=== PATIENT | male | born 1965 | race Two or more races ===

== ENCOUNTER 2024-07-13 19:20 | Emergency (ER) | payer BC, OTHER ==
[~2024-07-13] VITALS: Ht 195.6 cm; Wt 108.9 kg
[2024-07-13] MEDS ORDERED: CALCIUM CHLORIDE 1,000 MG/10 ML DISP.SYRIN IV ONE (19:23)
[2024-07-13] MEDS ORDERED: ATROPINE SULFATE 1 MG/10 ML DISP.SYRIN IV ONE (19:23)
[2024-07-13] MEDS ORDERED: EPINEPHRINE (1:10,000) SYRINGE 1 MG/10 ML DISP.SYRIN IVP ONE (19:23)
[2024-07-13 19:27] VITALS: TEMP 98.1
[2024-07-13] MEDS ORDERED: NOREPINEPHRINE 8MG/250ML RTU 250 ML IV ONE (19:41)
[2024-07-13] MEDS ORDERED: Magnesium 1 GM/2 ML VIAL ONE (19:54)
[2024-07-13] MEDS: VANCOMYCIN 1 GM in IV D5W 250 ML IV ONE (20:00)
[2024-07-13] MEDS: CEFEPIME 1 GM in IV D5W 50 ML IV ONE (20:00)
[2024-07-14 00:47] VITALS: BP 0/0; O2SAT 0
== END 2024-07-14 00:48 ==
LOC: ER 19:22
DX: I46.9 Cardiac arrest, cause unspecified (principal); I10 Essential (primary) hypertension; Z87.19 Personal history of other diseases of the digestive system; Z60.2 Problems related to living alone
CPT/HCPCS: 99291; 92950; 31500; 71045; 93005 ×2; J0461; J3490; J0171 ×2; J3475; J3370; J7060; J0692